=== PATIENT | female | born 1965 | race Two or more races ===

== ENCOUNTER 2019-12-04 08:45 | Inpatient (IN) | payer OTHER ==
[~2019-12-04] VITALS: Ht 172.7 cm; Wt 104.3 kg
[2019-12-04] MEDS ORDERED: METFORMIN HCL500 M3 PO (15:09)
[2019-12-04] MEDS ORDERED: COZAAR50 MG PO (15:09)
[2019-12-04] MEDS ORDERED: PLAVIX75 MG PO (15:10)
[2019-12-04] MEDS ORDERED: HYDRODIURIL12.5 MG PO (15:11)
[2019-12-04] MEDS ORDERED: SYNTHROID137 MCG PO (15:12)
[2019-12-11] MEDS ORDERED: SYNTHROID137 MCG PO (10:09)
== END 2019-12-13 14:52 | disposition home or self-care (01) | DRG 331 ==
LOC: O/R 12-10 05:45 → SURG 12-10 05:45 → RECOVERY 12-10 10:45 → SURG 12-10 14:29
PROVIDERS: ADMIT Colon & Rectal Surgery
PROC: 0DBN4ZZ Excision of Sigmoid Colon, Percutaneous Endoscopic Approach (ICD-10-PCS; 2019-12-10)
PROC: 07BC4ZX Excision of Pelvis Lymphatic, Percutaneous Endoscopic Approach, Diagnostic (ICD-10-PCS; 2019-12-10)
PROC: 0WUF47Z Supplement Abdominal Wall with Autologous Tissue Substitute, Percutaneous Endoscopic Approach (ICD-10-PCS; 2019-12-10)
PROC: 0DTP4ZZ Resection of Rectum, Percutaneous Endoscopic Approach (ICD-10-PCS; principal; 2019-12-10 10:45)
DX: C20 Malignant neoplasm of rectum (principal)

== ENCOUNTER 2019-12-09 11:03 | Day surgery (SDC) | payer OTHER ==
[~2019-12-09 11:03] MED LIST: COZAAR50 MG PO; HYDRODIURIL12.5 MG PO; METFORMIN HCL500 M3 PO; PLAVIX75 MG PO; SYNTHROID137 MCG PO
== END 2019-12-09 15:54 | disposition home or self-care (01) ==
LOC: AMB-ENDOS 11:03
DX: C20 Malignant neoplasm of rectum (principal)

== ENCOUNTER 2020-01-14 05:50 | Day surgery (SDC) | payer OTHER ==
[2020-01-14] MEDS ORDERED: ULTRACET PO (08:32)
== END 2020-01-14 10:30 | disposition home or self-care (01) ==
LOC: CIR.AMB 05:50
PROVIDERS: ATTEND Colon & Rectal Surgery
DX: C20 Malignant neoplasm of rectum (principal)

== ENCOUNTER 2021-01-08 07:45 | Day surgery (SDC) | payer OTHER ==
[~2021-01-08 07:45] MED LIST changes: +ULTRACET PO
== END 2021-01-08 15:15 | disposition home or self-care (01) ==
LOC: AMB-ENDOS 07:45
PROVIDERS: ATTEND Colon & Rectal Surgery
DX: K62.89 Other specified diseases of anus and rectum (principal); Z20.822 Contact with and (suspected) exposure to COVID-19

== ENCOUNTER 2023-08-09 06:24 | Day surgery (SDC) | payer OTHER ==
[2023-08-02 10:25] LABS: HEMATOCRIT 34.5 % (36.0-45.00); HEMOGLOBIN 11.4 g/dL (12.0-15.00); MEAN CELL VOLUME 79.8 fL (80.00-100.00); MEAN CORPUSCULAR HEMOGLOBIN 26.4 pg (27.00-32.0); MEAN CORPUSCULAR HGB CONC 33.1 g/dl (32.0-36.0); PLATELET COUNT 350 K/uL (150-450); RED BLOOD COUNT 4.33 M/uL (4.00-6.00); RED CELL DISTRIBUTION WIDTH 16.9 % (11.5-14.5)
[2023-08-02 10:26] LABS: PH,URINE 6.5 (5.0-8.0); URINE APPEARANCE Clear; URINE BILIRRUBIN Negative (NEGATIVE); URINE BLOOD Negative; URINE COLOR Yellow; URINE GLUCOSE Negative (NEGATIVE); URINE LEUKOCYTE Trace; URINE NITRATE Negative; URINE PROTEIN Negative (NEGATIVE)
[2023-08-02 10:28] LABS: URINE BACTERIA 127.1 uL (0.0-1933); URINE EPITHELIAL CELLS 23.1 uL (0.0-38.8); URINE WBC 10.9 uL (0.0-23.2)
[2023-08-02 10:53] LABS: INR 0.99; PARTIAL THROMBOPLASTIN TIME 29.6 SECONDS (22.0-34.0); PROTHROMBIN TIME 10.4 SECONDS (9.0-11.5)
[2023-08-02 11:03] LABS: ALBUMIN 3.6 gm/dL (3.4-5.0); BILIRUBIN TOTAL 1.19 mg/dL (0.3-1.2); CREATININE SERUM 0.65 mg/dL (0.55-1.02); GFR 93.62; GLOBULINA 3.2 G/DL (2.4-3.5); POTASSIUM 3.66 mEq/L (3.5-5.1); TOTAL PROTEIN 6.8 gm/dL (6.4-8.2)
[~2023-08-09 06:24] MED LIST changes: +ECOTRIN81 MG; +NASAL MIST126 ML; +ZOCOR40 MG PO
== END 2023-08-09 13:40 | disposition home or self-care (01) ==
LOC: CIR.AMB 06:24
PROVIDERS: ATTEND Colon & Rectal Surgery
DX: C18.9 Malignant neoplasm of colon, unspecified (principal); Z20.822 Contact with and (suspected) exposure to COVID-19